=== PATIENT | female | born 2000 | race Two or more races ===

== ENCOUNTER 2019-12-03 12:13 | Emergency (ER) | payer OTHER ==
[~2019-12-03] VITALS: Ht 162.6 cm; Wt 84.4 kg
[2019-12-03 12:17] VITALS: BP 119/78
--- NOTE | 2019-12-03 13:04 | NUR ---
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
== END 2019-12-03 13:06 | disposition left against medical advice (07) ==
LOC: ED 13:00
DX: R10.9 Unspecified abdominal pain (principal); Z53.21 Procedure and treatment not carried out due to patient leaving prior to being seen by health care provider